=== PATIENT | male | born 1950 | race Caucasian/White ===

== ENCOUNTER 2020-06-21 10:16 | Emergency (ER) | payer MEDICARE ==
[~2020-06-21] VITALS: Ht 177.8 cm; Wt 70.8 kg
[2020-06-21 10:18] VITALS: BP_SYST 132
--- NOTE | 2020-06-21 10:20 | NUR ---
Patient to ER bed to gown for evaluation. Side rails up. Report given to abraham.
--- NOTE | 2020-06-21 11:00 | NUR ---
#18 gauge angiocatheter placed to R antecubital. Use of asceptic technique. Opsite placed over site. Blood return noted. Blood for lab drawn from site. Flushed with 10 mL of normal saline. No evidence of infiltration noted. Patient tolerated well.
--- NOTE | 2020-06-21 11:10 | NUR ---
nuclear medicine pet ct technologist at bedside for portable xray.
--- NOTE | 2020-06-21 11:18 | NUR ---
ER at bedside examining patient.
--- NOTE | 2020-06-21 11:20 | NUR ---
Patient AAO x 4 BIB ALS to ER bed 8 with c/o intermittent shortness of breath and fever x 9 days. Reports he was tested positive for COVID this Thursday. Patient has h/o blindness, PVCs with unknown etiology (f/u appointments with cardiology), and depression. Expiratory rhonchi on auscultation and increased respiratory effort with movement noted. Patient SpO2 is currently 93% with 2 L/min O2 via nasal cannula. Denies chest pain at this time. Will continue to monitor. Addendum: 06/21/20 at 1156 by [facility] Last Tylenol taken was 0800 this AM. Current oral temperature is 98.3 F.
[2020-06-21 11:45] LABS: BASOPHILS % (AUTO) 0.2 % (0.0-2.0); HEMATOCRIT 45.8 % (36-54); HEMOGLOBIN 15.7 g/dL (14.0-18.0); LYMPHOCYTES # (AUTO) 0.2 K/uL (1.0-5.5); LYMPHOCYTES % (AUTO) 1.2 % (20.5-51.5); MEAN CORPUSCULAR HEMOGLOBIN 31 pg (27-31); MEAN CORPUSCULAR HGB CONC 34 % (32-36); MEAN CORPUSCULAR VOLUME 90 fL (79.0-98.0); MONOCYTES # (AUTO) 0.8 K/uL (0.0-1.0); NEUTROPHILS # (AUTO) 19.6 K/uL (1.8-7.7); NEUTROPHILS % (AUTO) 94.6 % (40.0-70.0); PLATELET COUNT (AUTO) 424 K/uL (130-430); RED BLOOD CELL COUNT(AUTO) 5.09 MIL/uL (4.2-6.2); RED CELL DISTRIBUTION WIDTH 12.6 % (9.0-15.0); WHITE BLOOD COUNT (AUTO) 20.7 K/uL (4.8-10.8)
[2020-06-21] MEDS ORDERED: AZITHROMYCIN 500 MG in NS 250 ML IV ONE (11:45)
[2020-06-21 11:53] LABS: BILIRUBIN,URINE 1+ (NEGATIVE); BLOOD, URINE 1+ (NEGATIVE); CLARITY/URINE SL CLOUDY (CLEAR); COLOR,URINE YELLOW (YELLOW); GLUCOSE,URINE NEGATIVE (NEGATIVE); KETONES,URINE 1+ (NEGATIVE); LEUKOCYTE ESTERASE ,URINE NEGATIVE (NEGATIVE); NITRITE, URINE NEGATIVE (NEGATIVE); PH,URINE 5.5 (5.0-8.0); PROTEIN URINE 3+ (NEGATIVE); UROBILINOGEN,URINE 0.2 (0.2-1.0)
[2020-06-21 12:02] LABS: CALCIUM 9.5 mg/dL (8.4-11.0); CREATININE 1.34 mg/dL (0.55-1.30); POTASSIUM 3.4 mmol/L (3.5-5.1)
[2020-06-21] MEDS ORDERED: AZITHROMYCIN 500 MG/VIAL (ZITHROMAX) IV ONE (12:05)
[2020-06-21 12:06] LABS: ALBUMIN 3.3 g/dL (3.4-4.8); TOTAL BILIRUBIN 0.9 mg/dL (0.0-1.0)
[2020-06-21 12:07] LABS: PROTHROMBIN TIME 9.8 SECS (9.5-12.5)
[2020-06-21] MEDS ORDERED: ACYC400T PO (12:13)
[2020-06-21] MEDS ORDERED: ROSU10TA2 PO (12:13)
[2020-06-21] MEDS ORDERED: DOXY100C PO (12:13)
[2020-06-21] MEDS ORDERED: PRED20TA PO (12:13)
[2020-06-21] MEDS ORDERED: PROP60CA40 PO (12:13)
[2020-06-21] MEDS ORDERED: BUPR300T55 PO (12:13)
[2020-06-21] MEDS ORDERED: BENZ-16 PO (12:13)
--- NOTE | 2020-06-21 12:13 | NUR ---
Medication reconciliation completed with information provided by . Any prior medication reconciliation on file was reviewed and corrected.
[2020-06-21] MEDS ORDERED: ALBMDI INH (12:14)
[2020-06-21 12:21] LABS: BACTERIA,URINE FEW /HPF (None Seen); WBC,URINE 0-3 /HPF (0-3)
--- NOTE | 2020-06-21 12:43 | NUR ---
Dr. Bean, [place] [facility] Doc, called back to speak with Dr. Day regarding pt status. Call transfered to Dr. Day.
[2020-06-21] MEDS ORDERED: cefTRIAXone 1 GM in D5W 50 ML IV ONE (13:00)
[2020-06-21] MEDS ORDERED: DEXAMETHASONE SOD PHOSPHATE 10 MG/ML VIAL IVP ONE (13:00)
[2020-06-21 13:26] LABS: C-REACTIVE PROTEIN QUANT 19.6 mg/dL (0-0.5)
[2020-06-21] MEDS ORDERED: cefTRIAXone 1 GM VIAL ONE (13:26)
[2020-06-21 13:39] LABS: CKMB RELATIVE INDEX 0.9 (0.0-2.9); CREATINE KINASE MB 3.5 ng/mL (0-3.6)
--- NOTE | 2020-06-21 14:55 | NUR ---
Transfer consent signed by patient at this time.
--- NOTE | 2020-06-21 15:32 | NUR ---
TRANSFER INFO [facility], Dr. [phone] tipton hernandez eta 1600 spoke to Shelly
--- NOTE | 2020-06-21 15:50 | NUR ---
Patient to be transferred to [facility] ED. Is being transferred due to higher level of care. Receiving facility has accepting physician and available space. ER physician Dr. Day has signed transfer form. Patient or responsible alliance party has agreed to transfer and signed form. Patient belongings inventoried and will be sent with patient. Copy of nursing notes, lab reports, EKG, physicians orders and xrays to be sent with patient. Report called to JAIR Clarke at receiving facility. Receiving physician is Dr. Sage. [facility] ambulance service has been called for transfer. ETA is 1600.
[2020-06-21 16:30] VITALS: BP_SYST 117
--- NOTE | 2020-06-21 16:35 | NUR ---
[facility] ambulance at bedside to transport patient to [facility] ED. Report given at bedside.
== END 2020-06-21 16:35 | disposition short-term general hospital (02) ==
LOC: SED 10:16
DX: U07.1 COVID-19 (principal); J18.9 Pneumonia, unspecified organism; I10 Essential (primary) hypertension; Z79.899 Other long term (current) drug therapy
CPT/HCPCS: 36415; 36600; 71045; 80053; 81000; 82550; 82553; 82728; 82803; 83605; 83615; 83880; 84484; 85025; 85379; 85384; 85610; 85730; 86140; 87040; 87086; 87426; 93005; 96365; 96367; 96375; 99285; J0456; J0696; J1100